=== PATIENT | male | born 1955 | race Caucasian/White ===

== ENCOUNTER 2024-03-03 08:40 | Inpatient (IN) | payer OTHER ==
[~2024-03-03] VITALS: Ht 180.3 cm; Wt 99.8 kg
[~2024-03-03 08:40] MED LIST: CEFAZOLIN SOD 2 GM in D5W 50 ML IV ONE; CELECOXIB 100 MG CAPSULE PO ONE; CELECOXIB 100 MG CAPSULE PO SCH; GABAPENTIN 300 MG CAPSULE PO ONE; SCOPOLAMINE HYDROBROMIDE 1 MG PATCH .72 H (TRANSDERM-SCOP) TD ONE; oxyCODONE HCL 10 MG TAB.ER.12H PO ONE
[2024-03-03] MEDS ORDERED: ACETAMINOPHEN 500 MG TABLET ONE (08:47)
[2024-03-03] MEDS ORDERED: LACTULOSE 20 GM/30 ML UDC PO PRN (09:15)
[2024-03-03] MEDS ORDERED: BISACODYL 10 MG/SUPPOSITORY RC PRN (09:15)
[2024-03-03] MEDS ORDERED: NALOXONE HCL 0.4 MG/ML AMP (NARCAN) IVP PRN ×3 (09:15)
[2024-03-03] MEDS ORDERED: METOCLOPRAMIDE HCL 10 MG/2 ML VIAL IVP PRN (09:15)
[2024-03-03] MEDS ORDERED: DIPHENHYDRAMINE HCL 25 MG CAPSULE PO PRN (09:15)
[2024-03-03] MEDS: GABAPENTIN 300 MG CAPSULE ONE (09:24)
[2024-03-03] MEDS: ACETAMINOPHEN 500 MG TABLET PO ONE (09:24)
[2024-03-03] MEDS: CELECOXIB 100 MG CAPSULE ONE (09:24)
[2024-03-03] MEDS: SCOPOLAMINE HYDROBROMIDE 1 MG PATCH .72 H (TRANSDERM-SCOP) TD ONE (09:24)
[2024-03-03] MEDS: oxyCODONE HCL 10 MG TAB.ER.12H PO ONE (09:34)
[2024-03-03 10:02] VITALS: PULSE 74; RESP 22; TEMP 98.7; O2SAT 98
[2024-03-03] MEDS ORDERED: HYDROmorphone 1 MG/ML INJ. CARTRIDGE IVP PRN ×5 (10:45→11:00)
[2024-03-03] MEDS ORDERED: ONDANSETRON HCL 4 MG/2 ML VIAL IVP PRN ×2 (10:45→11:45)
[2024-03-03] MEDS ORDERED: LABETALOL 100 MG/ 20ML VIAL IVP PRN (10:45)
[2024-03-03] MEDS ORDERED: LR 1,000 ML IV SCH (10:45)
[2024-03-03] MEDS ORDERED: MEPERIDINE HCL/PF 25 MG/ML DISP.SYRIN IVP PRN (10:45)
[2024-03-03] MEDS ORDERED: hydrALAZINE HCL 20 MG/ML VIAL IVP PRN (10:45)
[2024-03-03] MEDS ORDERED: MIDAZOLAM HCL 2 MG/2 ML VIAL (VERSED) IVP PRN (10:45)
[2024-03-03] MEDS ORDERED: traMADol HCL HCL 50 MG TABLET (ULTRAM) PO PRN (11:00)
[2024-03-03] MEDS ORDERED: LORATADINE 10 MG TABLET PO PRN (11:00)
[2024-03-03] MEDS ORDERED: oxyCODONE HCL 5 MG TABLET PO PRN ×2 (11:00)
[2024-03-03 11:53] VITALS: BP_SYST 128
[2024-03-03] MEDS: HYDROmorphone 2 MG/ML VIAL ONE (12:55)
[2024-03-03] MEDS: HYDROmorphone 1 MG/ML INJ. CARTRIDGE ONE (13:55)
[2024-03-03] MEDS ORDERED: ACETAMINOPHEN 500 MG TABLET PO SCH (14:00)
[2024-03-03] MEDS ORDERED: KETOROLAC TROMETHAMINE 10 MG TABLET (TORADOL) PO SCH (14:00)
[2024-03-03] MEDS ORDERED: OXYCODONE/ACETAMINOPHEN 5-325 TABLET ONE (15:03)
[2024-03-03] MEDS: hydrALAZINE HCL 20 MG/ML VIAL ONE (16:00)
[2024-03-03] MEDS ORDERED: SENNOSIDES/DOCUSATE SODIUM 1 TAB TABLET(SENOKOT-S) PO SCH (21:00)
[2024-03-04] MEDS ORDERED: ASPIRIN 81 MG TAB.CHEW PO SCH (09:00)
[2024-03-04] MEDS ORDERED: CELECOXIB 200 MG CAPSULE PO SCH (11:00)
== END 2024-03-03 16:40 | disposition home or self-care (01) | DRG 470 ==
LOC: SMU 08:40 → EDBD 09:45
PROVIDERS: ADMIT Student in an Organized Health Care Education/Training Program; ATTEND Student in an Organized Health Care Education/Training Program
PROC: 0SRC0JA Replacement of Right Knee Joint with Synthetic Substitute, Uncemented, Open Approach (ICD-10-PCS; principal; 2024-03-03 09:41)
DX: M17.11 Unilateral primary osteoarthritis, right knee (principal)
CPT/HCPCS: 73560; 87081; 97110-GP; 97116-GP; 97530-GP; C1776; J0360; J0690; J0696; J1170; J7060